=== PATIENT | male | born 1955 | race Caucasian/White ===

== ENCOUNTER 2018-11-27 14:33 | Emergency (ER) | payer MEDICAID ==
[2018-11-27] MEDS: ONDANSETRON (ODT) 4 MG TAB ODT (14:59)
[2018-11-27] MEDS: HYDROmorphONE 2 MG/ML SYG IM ×2 (15:04→16:04)
[2018-11-27] MEDS: KETOROLAC 30 MG INJ IM (15:05)
[2018-11-27] MEDS ORDERED: HYDROmorphONE 2 MG/ML SYG IV (16:47)
[2018-11-27] MEDS ORDERED: SOD CHLORIDE 0.9% 1,000 ML IV (16:47)
[2018-11-27] MEDS ORDERED: DIPHENHYDRAMINE 50 MG INJ IV (17:00)
[2018-11-27] MEDS ORDERED: DEXAMETHASONE 10 MG/ML 1 ML INJ IV (17:00)
== END 2018-11-27 18:10 | disposition home or self-care (01) ==
LOC: E/R 18:10
DX: M54.31 Sciatica, right side (principal)
CPT/HCPCS: 96372; 99284-25

== ENCOUNTER 2018-11-27 22:41 | Emergency (ER) | payer MEDICAID ==
[2018-11-28] MEDS: KETOROLAC 60 MG INJ IM (00:57)
[2018-11-28] MEDS: HYDROCODONE/APAP (10/325) TAB PO (00:57)
== END 2018-11-28 02:10 | disposition home or self-care (01) ==
LOC: E/R 22:41
DX: M54.41 Lumbago with sciatica, right side (principal)
CPT/HCPCS: 96372; 99284-25

== ENCOUNTER 2018-11-30 19:05 | Emergency (ER) | payer SELFPAY, MEDICAID ==
[2018-11-30] MEDS: AMLODIPINE 5 MG TAB PO (21:23)
== END 2018-11-30 21:40 | disposition home or self-care (01) ==
LOC: FTE 19:05
DX: R20.0 Anesthesia of skin (principal)
CPT/HCPCS: 82962; 99283